=== PATIENT | female | born 1935 | race Caucasian/White ===

== ENCOUNTER 2019-08-31 01:17 | Inpatient (IN) | payer MEDICARE, OTHER ==
[~2019-08-31] VITALS: Ht 172.7 cm; Wt 99.8 kg
--- NOTE | 2019-08-31 01:48 | NUR ---
URINE SPECIMEN SENT TO LAB
--- NOTE | 2019-08-31 01:49 | NUR ---
LINEN CHANGED AND PERINEAL CARE PROVIDED. PT REPOSITIONED IN BED. VSS. WILL CONTINUE TO MONITOR.
[2019-08-31] MEDS ORDERED: NEXIUM20 MG PO (01:52)
[2019-08-31] MEDS ORDERED: TESSALON PERLE100 MG PO (01:52)
[2019-08-31] MEDS ORDERED: LEXAPRO5 MG PO (01:52)
[2019-08-31] MEDS ORDERED: LOMOTIL 2.5-0.1 EAC1 PO (01:52)
[2019-08-31] MEDS ORDERED: AVAPRO300 MG PO (01:53)
[2019-08-31] MEDS ORDERED: GLUCOPHAGE500 MG PO (01:53)
[2019-08-31] MEDS ORDERED: LEVEMIR FL100 UNIT/1 SC (01:53)
[2019-08-31] MEDS ORDERED: HYDROCHLOROTH12.5 M1 PO (01:53)
[2019-08-31] MEDS ORDERED: PROPAFENONE HC225 MG PO (01:54)
[2019-08-31] MEDS ORDERED: NOVOLOG100 UNIT/1 SC (01:54)
[2019-08-31] MEDS ORDERED: CRESTOR5 MG PO (01:55)
[2019-08-31] MEDS ORDERED: COUMADIN2 MG PO (01:55)
[2019-08-31 02:06] LABS: BASOPHILS 0.2 % (0-2); EOSINOPHILS 0.9 % (0-7); HEMATOCRIT 35.9 % (36.0-48.0); HEMOGLOBIN 11.6 g/dL (12-16); IMMATURE GRANULOCYTES 0.5 % (0-5); LYMPHOCYTES 23.1 % (15-50); MCH 28.8 pg (26.0-34.0); MCHC 32.3 g/dL (31.0-37.0); MCV 89.1 fL (80.0-100.0); MEAN PLATELET VOLUME 9.7 fL (7.4-10.4); MONOCYTES 12.5 % (2-11); NEUTROPHILS 62.8 % (40-80); PLATELET COUNT 391 10x3/uL (130-400); RBC 4.03 10x6/uL (4.00-5.40); RDW 14.7 % (11.5-14.5); WBC 11.1 10x3/uL (4.8-10.8)
[2019-08-31 02:08] LABS: BILIRUBIN NEGATIVE (NEGATIVE); GLUCOSE 100 mg/dL (NEGATIVE); KETONE MODERATE mg/dL (NEGATIVE); NITRITE NEGATIVE (NEGATIVE); UROBILINOGEN NORMAL (NORMAL)
[2019-08-31 02:10] LABS: BACTERIA MODERATE /hpf (NEGATIVE); EPITHELIAL CELLS 0-5 /hpf (0-5); WHITE CELLS - URINE 25-50 /hpf (NEGATIVE); YEAST >1+ /hpf (NONE SEEN)
[2019-08-31 02:22] LABS: CALC OSMOLALITY 290 mosm/kg (275-300); CALCIUM 9.1 mg/dL (8.5-10.1); CARBON DIOXIDE 25.8 mmol/L (21.0-32.0); CHLORIDE - SERUM 104 mmol/L (98-107); CREATININE - SERUM 0.8 mg/dL (0.6-1.3); GLUCOSE 298 mg/dL (74-106); POTASSIUM - SERUM 3.3 mmol/L (3.5-5.1); SODIUM 138 mmol/L (136-145); UREA NITROGEN 23 mg/dL (7-18); eGFR NON AFRICAN AMERICAN 73 mL/min (90-120)
[2019-08-31 02:23] LABS: APTT 33.5 SECONDS (22.8-39.4); INR 1.34 (0.85-1.17); PROTIME 16.5 SECONDS (11.6-15.0)
[2019-08-31 02:34] LABS: ALBUMIN 1.7 g/dL (3.4-5.0); ALKALINE PHOSPHATASE 71 U/L (30-120); ALT (SGPT) 38 U/L (10-68); BILIRUBIN - TOTAL 0.58 mg/dL (0.2-1.3); C-REACTIVE PROTEIN 34.7 mg/dL (0.0-0.9); CREATINE KINASE 137 UL (21-215); MAGNESIUM - SERUM 1.5 mg/dL (1.8-2.4); PRO BNP 237 pg/mL (0-450); THYROID STIMULATING HORMONE 0.75 uIU/mL (0.36-3.74); TROPONIN-I < 0.017 ng/mL (0.000-0.060)
[2019-08-31 02:37] LABS: LIPASE 28 U/L (73-393)
[2019-08-31 05:28] VITALS: BP 149/58; BMI 33.5
--- NOTE | 2019-08-31 06:02 | NUR ---
PT ARRIVED TO THE FLOOR. ALERT WITH SOME CONFUSION. PT IS HARD OF HEARING. IV SITE LT FA DRESSING CLEAN DRY AND INTACT. NO SIGNS OF INFECTION OR INFULTRATION. BILATERAL ARM BRUISES. BOWEL SOUNDS ACTIVE. LUNG SOUNDS CLEAR. SOME LOWER LEG SWELLING PRESENT. SKIN CLEAN DRY AND INTACT. HARD CAST TO RT FOOT AND LEG DO TO A ANKLE FX. 2LO2 NASAL CANNULA. WILL CONTINUE PLAN OF CARE. CALL LIGHT IN REACH. BED LOWERED AND LOCKED. BED RAILS UPX2. DELMA ALARM ON. FALL PRECAUTIONS IN PLACE.
--- NOTE | 2019-08-31 06:04 | NUR ---
WHEN GIVEN REPORT FROM ER. ER NURSE STATED THAT PT WAS TRAVELING FROM [place] TODAY TO LIVE HERE IN [place] AT THE [facility] WITH HER DAUGHTER. PT WAS LIVING IN [place] WITH HER SON WHEN SHE WAS TAKEN TO THE HOSPITAL DUE TO A FALL IN THE SHOWER AT HER SONS. SON STATED THAT THE FALL HAPPENED 5-6 HOURS BEFORE BRINGING HER TO THE HOSPITAL BUT THE DOCTORS SUSPECTED THAT THE INJURY HAPPEND 3-4 DAYS PRIOR TO WHEN THE SON BROUGHT HER TO THE HOSPITAL. ER NURSE ALSO STATED THAT THE DAUGHTER LEFT THE PT IN HER CAR NOT RUNNING FOR HOURS UNTIL EMS ARRIVED TO HELP WITH TRANSFURING THE PT. UPON ASSESSING THE PT WHEN SHE ARRIVED TO THE FLOOR. THE PT SCREAMS OUT WHEN YOU TOUCH HER AND YELLS "PLEASE I DID NOTHING WRONG PLEASE DONT HURT ME" CM CONSULT ORDERED.
--- NOTE | 2019-08-31 07:41 | NUR ---
CALL FROM DAUGHTER,PASSWORD CONFIRMED. SHE STATES SHE WANTS UPDATE ON HER MOMS STATUS WHEN DOCTOR ROUNDS. SHE ALSO STATES HER MOM HAS TO BE FED HER MEALS.
[2019-08-31 08:00] VITALS: BP 128/62
--- NOTE | 2019-08-31 10:30 | NUR ---
FAMILY TO VISIT AND WANTS TO GIVE PATIENT COFFEE. I INSTRUCTED FAMILY PATIENT CANNOT HAVE ANYTHING UNTIL SHE WAKES UP MORE. SHE IS STILL VERY SLEEPY AND DOES NOT WAKE ENOUGH TO GIVE HER PO AT THIS TIME.
[2019-08-31 11:14] VITALS: Ht 172.7 cm; Wt 99.8 kg
--- NOTE | 2019-08-31 11:39 | NUR ---
ASSESSMENT PER FLOW SHEET. PATIENT AWAKENS BRIEFLY. SHE HAS BRUISES ON ARMS AND LEGS,SPORATICALLY.RLE HAS SOME SWELLING AND BRUISES WITH CAST IN PLACE.FALL PREVENTION IN PLACE WITH DELMA MAT.
[2019-08-31 12:00] VITALS: BP 155/50
--- NOTE | 2019-08-31 13:10 | NUR ---
FAMILY HERE TO VISIT.PATIENT IS WAKING UP FOR HER GRANDAUGHTER. PATIENT IS EATING A FEW BITES OF JELLO AND BROTH.MONITOR FOR NEEDS.
[2019-08-31 16:00] VITALS: BP 137/75
--- NOTE | 2019-08-31 18:41 | NUR ---
REMAINS WITHOUT NEEDS.CONT PLAN OF CARE
[2019-08-31 20:00] VITALS: BP 157/77
[2019-09-01 04:00] VITALS: BP 165/66
[2019-09-01 06:29] LABS: BASOPHILS 0.1 % (0-2); EOSINOPHILS 1.8 % (0-7); HEMATOCRIT 38.2 % (36.0-48.0); HEMOGLOBIN 11.9 g/dL (12-16); IMMATURE GRANULOCYTES 0.5 % (0-5); LYMPHOCYTES 28.6 % (15-50); MCH 28.1 pg (26.0-34.0); MCHC 31.2 g/dL (31.0-37.0); MCV 90.3 fL (80.0-100.0); MONOCYTES 9.9 % (2-11); NEUTROPHILS 59.1 % (40-80); PLATELET COUNT 420 10x3/uL (130-400); RBC 4.23 10x6/uL (4.00-5.40); RDW 14.8 % (11.5-14.5); WBC 11.9 10x3/uL (4.8-10.8)
[2019-09-01 06:56] LABS: INR 1.83 (0.85-1.17); PROTIME 20.9 SECONDS (11.6-15.0)
--- NOTE | 2019-09-01 07:15 | NUR ---
ASSESSMENT PER FLOW SHEET. FALL PREVENTION IN PLACE WITH DELMA MAT.
[2019-09-01 07:23] LABS: ALBUMIN 1.6 g/dL (3.4-5.0); ALKALINE PHOSPHATASE 69 U/L (30-120); ALT (SGPT) 29 U/L (10-68); BILIRUBIN - TOTAL 0.27 mg/dL (0.2-1.3); CALC OSMOLALITY 287 mosm/kg (275-300); CALCIUM 8.8 mg/dL (8.5-10.1); CARBON DIOXIDE 25.9 mmol/L (21.0-32.0); CHLORIDE - SERUM 104 mmol/L (98-107); CREATININE - SERUM 0.6 mg/dL (0.6-1.3); GLUCOSE 267 mg/dL (74-106); POTASSIUM - SERUM 3.4 mmol/L (3.5-5.1); PROTEIN - SERUM 5.9 g/dL (6.4-8.2); SODIUM 139 mmol/L (136-145); eGFR NON AFRICAN AMERICAN > 90 mL/min (90-120)
[2019-09-01 07:24] LABS: UREA NITROGEN 14 mg/dL (7-18)
[2019-09-01 08:00] VITALS: BP 164/75
--- NOTE | 2019-09-01 08:30 | NUR ---
IV DCD WITH CATH TIP INTACT.
[2019-09-01] MEDS ORDERED: OMNICEF300 MG PO (09:26)
--- NOTE | 2019-09-01 10:06 | MORECARE ---
CASE MANAGEMENT DISCHARGE SUMMARY PATIENT: TRISTAN LAKHANI UNIT: [id number] ADM DATE: 08/31/19 AGE: 84 : 37 SEX: F ROOM/BED: D.2224 AUTHOR: SACHI FRIEDMAN PHYSICIAN: REFERRING PHYSICIAN: ARTIE MATIAS MD DATE OF SERVICE: 09/01/19 Discharge Plan Patient Name: TRISTAN LAKHANI [facility] [facility] 1935 Planned Disposition: Intermediate Facility Anticipated Discharge Date: Discharge Date: Expected LOS: Initial Reviewer: [email or web address] Initial Review Date: 08/31/2019 Generated: 09/01/19 11:05 am Comments DCP- Discharge Planning Updated by [email or web address]: Loretta Johns on 09/01/19 9:[address] Patient is being discharged to the [facility] she will be going to a skilled bed External Providers External Provider: [facility] Next Contact Date: Service Request Date: Service Type: Resolution: Reviewer: Comments: Patient Name: TRISTAN LAKHANI Page [phone] at 1006 All edits/amendments must be made on the electronic document DICTATION DATE: 09/01/19 100 CAREER SERVICES MANAGER: CEDRIC 09/01/19 1005 RPT#: [id number] DC DATE: STATUS: ADM IN [facility] [address] [id number] END OF REPORT
--- NOTE | 2019-09-01 10:55 | NUR ---
REPORT TO NARCISO AT THE [facility]
--- NOTE | 2019-09-01 12:42 | NUR ---
LEFT UNIT VIA STRETCHER WITH [facility] FOR TRANSPORT TO [address]
--- NOTE | 2019-09-02 09:34 | MORECARE ---
CASE MANAGEMENT DISCHARGE SUMMARY PATIENT: TRISTAN LAKHANI UNIT: [id number] ADM DATE: 08/31/19 AGE: 84 : 37 SEX: F ROOM/BED: D.2224 AUTHOR: SACHI FRIEDMAN PHYSICIAN: REFERRING PHYSICIAN: ARTIE MATIAS MD DATE OF SERVICE: 09/02/19 Discharge Plan Patient Name: TRISTAN LAKHANI [facility] [facility] 1935 Planned Disposition: [facility] Facility Anticipated Discharge Date: Discharge Date: 09/01/2019 Expected LOS: Initial Reviewer: [email or web address] Initial Review Date: 08/31/2019 Generated: 09/02/19 10:33 am Comments DCP- Discharge Planning Updated by [email or web address]: Loretta Johns on 09/01/19 9:[address] Patient is being discharged to the [facility]. she will be going to a skilled bed Last DP export: 09/01/19 9:06 a Patient Name: TRISTAN LAKHANI Page [phone] at 0934 All edits/amendments must be made on the electronic document DICTATION DATE: 09/02/19932 END USER CONSULTANT: CEDRIC 09/02/19932 RPT#: [id number] DC DATE:09/01/19 STATUS: DIS IN [facility] [address] [place] [address] END OF REPORT
== END 2019-09-01 12:42 | DRG 689 ==
LOC: D.ER 01:17 → D.MS 02:17
PROVIDERS: Family Medicine; ADMIT Family Medicine Adult Medicine; ATTEND Family Medicine Adult Medicine
DX: N39.0 Urinary tract infection, site not specified (principal); R53.2 Functional quadriplegia; G93.41 Metabolic encephalopathy; E43 Unspecified severe protein-calorie malnutrition; E11.65 Type 2 diabetes mellitus with hyperglycemia; R01.1 Cardiac murmur, unspecified; F03.90 Unspecified dementia, unspecified severity, without behavioral disturbance, psychotic disturbance, mood disturbance, and anxiety; E87.6 Hypokalemia; R50.9 Fever, unspecified; Z87.891 Personal history of nicotine dependence; S82.91XA Unspecified fracture of right lower leg, initial encounter for closed fracture

== ENCOUNTER 2019-11-20 09:26 | Inpatient (IN) | payer MEDICARE, OTHER ==
[2019-11-20] VITALS (11 sets, daily range): BP systolic 57–114; BP diastolic 28–87; BMI 23.8
[~2019-11-20] VITALS: Ht 172.7 cm; Wt 71.0 kg
--- NOTE | ~2019-11-20 | OP ---
PATIENT NAME: TRISTAN LAKHANI MEDICAL RECORD: [id number] :39 LOCATION:D.ICU D.2307 ADMISSION DATE:11/20/19 SURGEON: CESAR HOANG MD DATE OF OPERATION: 11/21/2019 PREOPERATIVE DIAGNOSES: 1. Need for IV access. 2. Urosepsis. 3. Coronary artery disease. 4. Diabetes mellitus. 5. Atrial fibrillation. 6. Dementia. POSTOPERATIVE DIAGNOSES: 1. Need for IV access. 2. Urosepsis. 3. Coronary artery disease. 4. Diabetes mellitus. 5. Atrial fibrillation. 6. Dementia. PROCEDURE: Right subclavian vein triple-lumen central venous line placement. SURGEON: Cesar Hoang MD REPORT OF PROCEDURE: The patient's right chest was prepped and draped in sterile fashion. A 5 cc of 1% lidocaine was infused into the subcutaneous tissues. A needle was used to cannulate the right subclavian vein and a guidewire was advanced with ease. Over this wire, a dilator was placed followed by the triple lumen catheter. The catheter aspirated nonpulsatile dark blood and flushed easily in all 3 ports. This was sutured into place with 3-0 silk ties and dressed appropriately. COMPLICATIONS: None. CONDITION: Stable. ANESTHESIA: Local. BLOOD LOSS: Minimal. Procedure done in the ICU at the bedside. TRANSINT:[id number] Voice Confirmation ID: [id number] DOCUMENT ID: [id number] CESAR HOANG MD CC: [id number] DICTATION DATE: 11/21/19918 SATURATOR: 11/21/19 1237 ADM IN [facility] [address] [place] [address]
[~2019-11-20 09:26] MED LIST: AVAPRO300 MG PO; COUMADIN2 MG PO; CRESTOR5 MG PO; GLUCOPHAGE500 MG PO; HYDROCHLOROTH12.5 M1 PO; LEVEMIR FL100 UNIT/1 SC; LEXAPRO5 MG PO; LOMOTIL 2.5-0.1 EAC1 PO; NEXIUM20 MG PO; NOVOLOG100 UNIT/1 SC; OMNICEF300 MG PO; PROPAFENONE HC225 MG PO; TESSALON PERLE100 MG PO
[2019-11-20 10:49] LABS: HEMATOCRIT 31.2 % (36.0-48.0); HEMOGLOBIN 10.1 g/dL (12-16); MCH 27.4 pg (26.0-34.0); MCHC 32.4 g/dL (31.0-37.0); MCV 84.8 fL (80.0-100.0); MEAN PLATELET VOLUME 11.1 fL (7.4-10.4); PLATELET COUNT 333 10x3/uL (130-400); RBC 3.68 10x6/uL (4.00-5.40); RDW 15.8 % (11.5-14.5); WBC 20.2 10x3/uL (4.8-10.8)
[2019-11-20 10:52] LABS: ALBUMIN 1.8 g/dL (3.4-5.0); ALKALINE PHOSPHATASE 91 U/L (30-120); ALT (SGPT) 29 U/L (10-68); CALC OSMOLALITY 304 mosm/kg (275-300); CALCIUM 9.5 mg/dL (8.5-10.1); CARBON DIOXIDE 18.3 mmol/L (21.0-32.0); CHLORIDE - SERUM 106 mmol/L (98-107); CKMB 5.1 U/L (0.0-3.6); CREATINE KINASE 106 UL (21-215); CREATININE - SERUM 1.5 mg/dL (0.6-1.3); POTASSIUM - SERUM 4.5 mmol/L (3.5-5.1); PROTEIN - SERUM 6.6 g/dL (6.4-8.2); SODIUM 139 mmol/L (136-145); UREA NITROGEN 38 mg/dL (7-18); eGFR NON AFRICAN AMERICAN 35 mL/min (90-120)
[2019-11-20 10:55] LABS: INR 2.42 (0.85-1.17)
[2019-11-20 10:56] LABS: APTT 36.1 SECONDS (22.8-39.4)
[2019-11-20 11:07] LABS: GLUCOSE 429 mg/dL (74-106)
[2019-11-20 11:08] LABS: TROPONIN-I 3.368 ng/mL (0.000-0.060)
[2019-11-20 12:28] LABS: BILIRUBIN NEGATIVE (NEGATIVE); KETONE NEGATIVE (NEGATIVE); NITRITE NEGATIVE (NEGATIVE); UROBILINOGEN NORMAL mg/dL (< 2)
[2019-11-20 12:30] LABS: BACTERIA MANY HPF (NONE SEEN); EPITHELIAL CELLS 0-5 /hpf (0-5)
[2019-11-20 13:47] LABS: LYMPHOCYTES 11 % (15-50); MONOCYTES 10 % (2-11); NEUTROPHILS 78 % (40-80)
[2019-11-20 13:48] LABS: ANISOCYTOSIS OCC; PLATELET ESTIMATE NORMAL
--- NOTE | 2019-11-20 17:05 | NUR ---
ATTEMPT TO CALL REPORT TO FLOOR X 3, M2 ANSWER X 1, NURSE AVAILABLE X 0
--- NOTE | 2019-11-20 18:40 | NUR ---
ATTEMT TO CALL REPORT X 10 MIN, ON HOLD, NURSE NOT AVAILABLE.
--- NOTE | 2019-11-20 19:55 | NUR ---
ATTEMPT TO CALL REPORT AGAIN. NURSE (RACHEL ORTEGA) NOT AVAILABLE
[2019-11-20] MEDS ORDERED: REMERON15 MG PO (23:44)
[2019-11-20] MEDS ORDERED: HYDROCODON-ACE1 EAC7 PO (23:46)
[2019-11-21] VITALS (79 sets, daily range): BP systolic 52–121; BP diastolic 28–99; Ht 172.7 cm; Wt 71.0 kg
--- NOTE | 2019-11-21 06:49 | NUR ---
0630 PT BECAME AGITATED, PULLING IV OUT AND ATTEMPTING TO PULL OUT MAYORGA. Mark PAGED NEW ORDERS PLACED FOR WRIST RESTRAINTS. WILL CONTINUE TO MONITOR
--- NOTE | 2019-11-21 07:28 | NUR ---
PAGED DR SMITH. GAVE OKAY TO PLACE CENTAL LINE. CONSENT OBTAINED FROM EMERGENCY CONTACT.
--- NOTE | 2019-11-21 12:56 | NUR ---
dnr per miri son. yu jay confirmed. no blood transfusions as well.
--- NOTE | 2019-11-21 14:17 | NUR ---
changed patients dressing wet to dry. abd pad and mepilex covered. pungent smell to wound.
--- NOTE | 2019-11-21 19:21 | NUR ---
RECEIVED REPORT FROM RACHEL MOE AND RACHEL MATTHEWS CHARGE NURSE, RACHEL MATTHEWS, CHARGE NURSE REPORTS THAT SHE WILL MONITOR PT'S VITAL SIGNS, LEVOPHED, AND ANY ADDITIONAL DRIPS
--- NOTE | 2019-11-21 20:00 | NUR ---
ASSESSMENT PER FLOW SHEET, VS CONTINUE, TEMP OBTAINED, PT IS VERY CONFUSED, RIGHT SUBCLAVIAN CVL INTACT WITH NO REDNESS OR EDEMA INFUSING NS AND LEVOPHED VIA PUMP, DRESSING ON COCCYX CDI, CHANGED TODAY PER ABHI, RN, FEET ELEVATED, MAYORGA CATH INTACT DRAINING DARK YELLOW URINE, FALL PRECAUTIONS IN PLACE
--- NOTE | 2019-11-21 21:29 | NUR ---
PT CONFUSED, OBTAINED FSBS, ADM INSULIN SUBQ AND HUNG NEW BAG OF NS VIA PUMP PER MD ORDERS, SEE EMAR
--- NOTE | 2019-11-21 22:34 | NUR ---
PHU MONTANO IVPB PER MD ORDERS, SEE EMAR
[2019-11-22] VITALS (73 sets, daily range): BP systolic 63–116; BP diastolic 28–85
--- NOTE | 2019-11-22 00:15 | NUR ---
PT AWAKE, PT TALKING OUT LOUD, CONFUSED, VS CONTINUE, FALL PRECAUTIONS IN PLACE
--- NOTE | 2019-11-22 00:55 | NUR ---
PT HR ELEVATED, RACHEL MATTHEWS CHARGE NURSE TO ROOM FOR EVALUATION AND EKG
--- NOTE | 2019-11-22 01:14 | NUR ---
RACHEL MATTHEWS, CHARGE NURSE CALLED DOCTOR, SEE ORDERS
--- NOTE | 2019-11-22 01:31 | NUR ---
BYRON, CD MANUFACTURING SUPERVISOR NURSE TO ROOM FOR ADM OF LOPRESSOR AND CARDIZEM PER MD ORDERS, SEE EMAR
--- NOTE | 2019-11-22 03:45 | NUR ---
LABS DRAWN PER THIS RN, I&O'S COLLECTED
--- NOTE | 2019-11-22 04:07 | NUR ---
PHU MONTANO IVPB PER MD ORDERS, SEE EMAR
--- NOTE | 2019-11-22 06:43 | NUR ---
SHIFT REPORT TO DAY SHIFT
--- NOTE | 2019-11-22 14:00 | NUR ---
DRESSING CHANGE ORDERED DAILY FOR COCCYX WOUND. REMOVED OLD DRESSING AND THIS NURSE SAW A BLACK UNSTAGABLE WOUND WITH A TUNNELING SPOT RIGHT IN THE MIDDLE OF THE WOUND. THIS NURSE PACKED THE TUNNEL WITH A WET 4X4 AND COVERED THE WOUND BED WITH A WET TO DRY DRESSING AND APPLIED A MEPILEX OVER TO PROVIDE MORE PADDING OVER BONY PROMINENCES.
--- NOTE | 2019-11-22 14:14 | NUR ---
Nutrition follow-up: Pts family member reports pt used to weigh 215# before a hospital stay in [place] 6 months ago. Pt now weighs 156#. Pt continues to be NPO due to confusion; has a very large infected coccyx wound. Based on the above pt is now assessed with severe malnutrition of chronic illness R/T infected wound AEB the following GLIM criteria: Phenotypic 1. ~27% weight loss in 6 months per family Etiologic 1. < 50% intake of estimated energy needs for > 2 weeks 2. 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 RDN following.
--- NOTE | 2019-11-22 17:50 | NUR ---
PAGED PRIMARY TO REPORT BRADYCARDIA
--- NOTE | 2019-11-22 18:30 | NUR ---
PRIMARY RETURNED PAGE AND NO NEW ORDERS REC'D. PT RESTING QUIETLY IN BED WITH HR 48BPM. WILL PASS ON IN SHIFT REPORT.
--- NOTE | 2019-11-22 19:15 | NUR ---
SHIFT REPORT RECEIVED FROM RACHEL REINOSO. PATIENT LYING SUPINE IN BED WITH WRIST RESTRAINTS ON. RESTING WITH EYES CLOSED WITH SHALLOW RESP. AT 16/MIN. VITAL SIGNS TAKEN: B\P= 101/54 P=48 R=16 O2 SET=99% WILL CONTINUE TO MONITOR.
--- NOTE | 2019-11-22 20:30 | NUR ---
FAMILY MEMBERS X3 ARRIVED TO STAY WITH PATIENT. SHE DENIED ANY PAIN WITH THEM. SHE ALSO SAID "ILOVE YOU ALL SO MUCH."
--- NOTE | 2019-11-22 23:26 | NUR ---
REPOSITIONED ON LEFT SIDE FOR FAMILY TO SEE PATIENT'S DECUBITUS ULCER ON COCCYX. NEW 4X4 DRESSINGS APPLIED.
[2019-11-23] VITALS (21 sets, daily range): BP systolic 70–104; BP diastolic 31–93
--- NOTE | 2019-11-23 01:30 | NUR ---
LYING ON LEFT SIDE WITH EYES CLOSED. NO S/S OF DISTRESS NOTED.
--- NOTE | 2019-11-23 07:46 | NUR ---
PATIENT YODITERING OUT. THIS NURSE ASSESSED PAIN AND PROVIDED ORDERED PAIN MEDICATION.
--- NOTE | 2019-11-23 11:15 | NUR ---
PAGED DR DAVIS TO REPORT FAMILYS WISHES TO PLACE THE PATIENT ON COMFORT MEASURES ONLY PAGED DR SMITH AGAIN FOR TRANSFER ORDERS TO THE FLOOR STILL AWAITING RETURN CALL AND ORDERS
--- NOTE | 2019-11-23 13:20 | NUR ---
PT ARRIVES TO ROOM VIA BED ESCORTED BY ICU STAFF. PT TRANSFERRED TO BED. MUKESH VELASCO NOTED AND DRAINING WITHOUT DIFFICULTY. CLEAR DARK YELLOW URINE NOTED TO COLLECTION BAG. STAT LOCK TO LEFT UPPER THIGH. DRESSING TO COCCYX IS CDI. PT WILL NOT RESPOND TO QUESTIONING AND ONLY MOANS WHEN SPOKEN TO. ALL FALL PRECAUTIONS ARE IN PLACE. BED IS IN THE LOWEST POSITION. CALL LIGHT AND BEDSIDE TABLE ARE WITHIN REACH. SIDE RAILS X 2. LEFT SUBCLAVIAN IN PLACE BIOPATCH IN PLACE AND IS SL AND FLUSHES WITHOUT DIFFICULTY. NO FAMILY AT BEDSIDE AT THIS TIME. WILL CONT TO MONITOR.
--- NOTE | 2019-11-23 14:56 | MORECARE ---
CASE MANAGEMENT DISCHARGE SUMMARY PATIENT: TRISTAN LAKHANI UNIT: [id number] ADM DATE: 11/20/19 AGE: 84 : 37 SEX: F ROOM/BED: D.2230 AUTHOR: SACHI FRIEDMAN PHYSICIAN: REFERRING PHYSICIAN: MAURO SMITH MD DATE OF SERVICE: 11/23/19 Discharge Plan Patient Name: TRISTAN LAKHANI Facility: [facility]:[place] : 1935 Planned Disposition: Anticipated Discharge Date: Discharge Date: Expected LOS: Initial Reviewer: [email or web address] Initial Review Date: 11/20/2019 Generated: 11/23/19 3:55 pm Patient Name: TRISTAN LAKHANI Page [phone] at 1456 All edits/amendments must be made on the electronic document DICTATION DATE: 11/23/191454 STATE ASSESSED PROPERTIES DIRECTOR: CEDRIC 11/23/191454 RPT#: [id number] DC DATE: STATUS: ADM IN [facility] [address] [place] [address] END OF REPORT
--- NOTE | 2019-11-23 15:06 | MORECARE ---
CASE MANAGEMENT DISCHARGE SUMMARY PATIENT: TRISTAN LAKHANI UNIT: [id number] ADM DATE: 11/20/19 AGE: 84 : 37 SEX: F ROOM/BED: D.2230 AUTHOR: SACHI FRIEDMAN PHYSICIAN: REFERRING PHYSICIAN: MAURO SMITH MD DATE OF SERVICE: 11/23/19 Discharge Plan Patient Name: TRISTAN LAKHANI [facility] [facility] 1935 Planned Disposition: Anticipated Discharge Date: Discharge Date: Expected LOS: Initial Reviewer: [email or web address] Initial Review Date: 11/20/2019 Generated: 11/23/19 4:06 pm Comments DCP- Discharge Planning Updated by [email or web address]: Claudine Solano on 11/23/19 1:[address] Patient Name: TRISTAN LAKHANI Admission Status: ER Accout number: [id number] Admission Date: 11-20-2019 : 1935 Admission Diagnosis:COUGH Attending: MAURO SMITH Current LOS: 3 Anticipated DC Date: Planned Disposition: Primary Insurance: MEDICARE A & B Discharge Planning Comments: CM SPOKE WITH PATIENT'S GRAND DAUGHTER ALLYSON TODAY AND THE FAMILY WOULD LIKE HOSPICE TO STEP IN. I HAVE FAXED A REFERRAL TO [facility]. WAITING CALL BACK. PATIENT'S POA IS MICHAEL AND HE CAN BE REACHED AT [phone] IF NEEDED. Client Services Analyst: Claudine Solano Last DP export: 11/23/19 1:56 p Patient Name: TRISTAN LAKHANI Page [phone] at 1506 All edits/amendments must be made on the electronic document DICTATION DATE: 11/23/19 1506 RN CCU: CEDRIC 11/23/19 1506 RPT#: [id number] DC DATE: STATUS: ADM IN [facility] [address] [place] [address] END OF REPORT
--- NOTE | 2019-11-24 09:24 | MORECARE ---
CASE MANAGEMENT DISCHARGE SUMMARY PATIENT: TRISTAN LAKHANI UNIT: [id number] ADM DATE: 11/20/19 AGE: 84 : 37 SEX: F ROOM/BED: D.2230 AUTHOR: SACHI FRIEDMAN PHYSICIAN: REFERRING PHYSICIAN: MAURO SMITH MD DATE OF SERVICE: 11/24/19 Discharge Plan Patient Name: TRISTAN LAKHANI [facility] [facility] 1935 Planned Disposition: Anticipated Discharge Date: Discharge Date: 11/23/2019 Expected LOS: Initial Reviewer: [email or web address] Initial Review Date: 11/20/2019 Generated: 11/24/19 10:23 am Comments DCP- Discharge Planning Updated by [id number]: Claudine Solano on 11/23/19 1:[address] Patient Name: TRISTAN LAKHANI Admission Status: ER Accout number: [id number] Admission Date: 11-20-2019 : 1935 Admission Diagnosis:COUGH Attending: MAURO SMITH Current LOS: 3 Anticipated DC Date: Planned Disposition: Primary Insurance: MEDICARE A & B Discharge Planning Comments: CM SPOKE WITH PATIENT'S GRAND DAUGHTER ALLYSON TODAY AND THE FAMILY WOULD LIKE HOSPICE TO STEP IN. I HAVE FAXED A REFERRAL TO [facility]. WAITING CALL BACK. PATIENT'S POA IS MICHAEL AND HE CAN BE REACHED AT [phone] IF NEEDED. Job Foreman: Claudine Yeboah DP export: 11/23/19 2:06 p Patient Name: TRISTAN LAKHANI Page [phone] at 0924 All edits/amendments must be made on the electronic document DICTATION DATE: 11/24/19922 REED FIXER: CEDRIC 11/24/19922 RPT#: [id number] DC DATE:11/23/19 STATUS: DIS IN [facility] [address] [place] [address] END OF REPORT
[2019-11-27 17:08] LABS: AEROBE ID Final report (())
[2019-11-27 17:08] LABS: AEROBE ID Final report (())
[2019-11-27 17:08] LABS: AEROBE ID Preliminary report (())
== END 2019-11-23 18:24 | disposition hospice, inpatient (51) | DRG 871 ==
LOC: D.ER 09:26 → D.EDHOLD 13:38 → D.ICU 13:38 → D.MS 11-23 12:47
PROVIDERS: Emergency Medicine; ADMIT Legal Medicine; ATTEND Legal Medicine
PROC: 05H533Z Insertion of Infusion Device into Right Subclavian Vein, Percutaneous Approach (ICD-10-PCS; principal; 2019-11-21)
DX: A41.9 Sepsis, unspecified organism (principal); R65.21 Severe sepsis with septic shock; I21.A1 Myocardial infarction type 2; N39.0 Urinary tract infection, site not specified; E87.2 Acidosis; I48.20 Chronic atrial fibrillation, unspecified; L89.159 Pressure ulcer of sacral region, unspecified stage; E11.9 Type 2 diabetes mellitus without complications; I35.0 Nonrheumatic aortic (valve) stenosis; R50.9 Fever, unspecified; D72.829 Elevated white blood cell count, unspecified; F03.90 Unspecified dementia, unspecified severity, without behavioral disturbance, psychotic disturbance, mood disturbance, and anxiety; Z79.84 Long term (current) use of oral hypoglycemic drugs; E86.0 Dehydration; I25.10 Atherosclerotic heart disease of native coronary artery without angina pectoris

== ENCOUNTER 2019-11-23 18:27 | Inpatient (IN) | payer OTHER ==
[~2019-11-23] VITALS: Ht 172.7 cm; Wt 74.8 kg
[~2019-11-23 18:27] MED LIST changes: +HYDROCODON-ACE1 EAC7 PO; +REMERON15 MG PO
--- NOTE | 2019-11-23 19:19 | NUR ---
[facility] IN [facility] FOR CREMATION PER [facility] NURSE WALLACE HUA RN.
[2019-11-23 20:00] VITALS: BP 102/48
--- NOTE | 2019-11-23 20:00 | NUR ---
FAMILY AT BEDSIDE AT THIS TIME. PT ON LEFT SIDE. COCCYX DRESSING IN PLACE. PILLOW BETWEEN KNEES. MAYORGA IN PLACE. RIGHT SUBCL INFUSING NS @ KVO WITH DILAUDID YARN SPINNER CONT 0.5MG/HR. PT SHOWING NO SIGNS OF PAIN. HOSPICE NURSE AT BEDSIDE ASSESSING PT. PROVIDED FAMILY WITH MORE CHAIRS. DENIES OTHER NEEDS AT THIS TIME. WILL CTM
--- NOTE | 2019-11-24 01:00 | NUR ---
PT TURNED TO RIGHT SIDE, RESPIRATIONS 8/MIN. O2 92% ON ROOM AIR. WITHOUT DISTRESS. SON AT BEDSIDE. COMBED KNOTS OUT OF PATIENTS HAIR. SON DENIES NEEDS AT THIS TIME. WILL CTM
[2019-11-24 01:47] VITALS: BMI 25.1
[2019-11-24 10:10] VITALS: BP 113/59
[2019-11-24 14:28] VITALS: Ht 172.7 cm; Wt 74.8 kg
--- NOTE | 2019-11-24 16:12 | NUR ---
I have reviewed this patient and I concur with the Shift Assessment completed by the Licensed Practical Nurse today this shift.
[2019-11-24 16:49] VITALS: BP 102/42
[2019-11-24 20:00] VITALS: BP 90/44
--- NOTE | 2019-11-24 22:30 | NUR ---
FAMILY AT BEDSIDE. IV TO RIGHT FOREARM DCd WITH CATH INTACT. MAYORGA CARE PROVIDED, HEEL BOOTS APPLIED. DRESSING TO COCCYX REMOVED, AREA CLEANSED, AND NEW DRESSING APPLIED. SUCTION AT BEDSIDE, CT.
--- NOTE | 2019-11-25 03:45 | NUR ---
I have reviewed this patient and I concur with the Shift Assessment completed by the Licensed Practical Nurse today this shift.
[2019-11-25 08:00] VITALS: BP 130/58
--- NOTE | 2019-11-25 08:24 | NUR ---
0700 ASLEEP SNORING WITH MOUTH OPEN MURMUR DETECTED FAMILY MEMBER ASLEEP IN RECLINER CHAIR
--- NOTE | 2019-11-25 10:26 | NUR ---
SPOKE WITH DESHAWN WITH [facility] AND REPORTED VITAL SIGNS TO HER
[2019-11-25 12:23] VITALS: BP 108/49
--- NOTE | 2019-11-25 16:48 | NUR ---
1500 CONTINUE TO TURN EVERY 2 HOURS EMOTIONAL SUPPORT PROVIDED TO FAMILY
--- NOTE | 2019-11-25 16:51 | NUR ---
1600 NO CHANGES WITH PATIENT AWAKENS AT TIMES OPENS EYES
--- NOTE | 2019-11-25 19:00 | NUR ---
RECEIVED REPORT, ASSUMED CARE, PT SLEEPING, DOES NOT AROUSE TO VOICE, RESPIRATIONS 10, FAMILY AT BEDSIDE, MAYORGA TO GRAVITY, FUSE CUP EXPANDER CONTINUOUS, R CVL PATENT
[2019-11-25 21:35] VITALS: BP 105/75
[2019-11-26 11:51] VITALS: BP 123/56
--- NOTE | 2019-11-26 17:37 | NUR ---
0700 BEDSIDE REPORT RECEIVED NO CHANGES FROM YESTERDAY FAMILY MEMBERS AT BEDSIDE EMOTIONAL SUPPORT GIVEN
--- NOTE | 2019-11-26 18:41 | NUR ---
0937 ATROPINE 2 GTTS SUBLINGUAL FOR COARSE GURGLING
--- NOTE | 2019-11-26 18:42 | NUR ---
1259 GURGLING IN BACK OF THROAT ATROPINE 2 GTTS GIVEN SL
--- NOTE | 2019-11-26 18:43 | NUR ---
1433 ATROPINE 2 GTTS GIVEN SL
--- NOTE | 2019-11-26 18:43 | NUR ---
1802 CHECKED FOR STOOL NONE NOTED ATROPINE 2 GTTS GIVEN SL EMOTIONAL SUPPORT PROVIDED TO PT DTR
--- NOTE | 2019-11-26 19:00 | NUR ---
RECEIVED REPORT, ASSUMED CARE, PT SLEEPING, DOES NOT AROUSE TO VOICE, RESPIRATIONS IRREGULAR, ARMY MANAGER 0.5 CONT, SON AT BEDSIDE, DENIES NEEDS, MAYORGA TO GRAVITY, ARMY MANAGER CONTINUOUS, R CVL PATENT
[2019-11-26 20:00] VITALS: BP 115/54
--- NOTE | 2019-11-27 03:38 | NUR ---
I have reviewed this patient and I concur with the Shift Assessment completed by the Licensed Practical Nurse today this shift.
--- NOTE | 2019-11-27 07:52 | NUR ---
PATIENT LYING TO LEFT SIDE. FAMILY IN ROOM.CALL LIGHT IN REACH
[2019-11-27 12:38] VITALS: BP 154/55
[2019-11-27 20:00] VITALS: BP 146/71
--- NOTE | 2019-11-27 20:15 | NUR ---
SUPINE IN BED, OPENS EYES AND GROANS WHILE BEING TURNED. FAMILY AT BEDSIDE, NO QUESTIONS AT THIS TIME, CTM.
--- NOTE | 2019-11-28 01:01 | NUR ---
BED BATH GIVEN, FOLEYLEAKING, FLUSHED AND MAYORGA CARE PROVIDED. POWDER ADMINISTERED TO FOLDS. CTM.
--- NOTE | 2019-11-28 01:03 | NUR ---
DRESSING TO COCCYX SOILED, REMOVED, CLEANSED, NEW DRESSING APPLIED. CTM.
--- NOTE | 2019-11-28 02:23 | NUR ---
I have reviewed this patient and I concur with the Shift Assessment completed by the Licensed Practical Nurse today this shift.
[2019-11-28 07:00] VITALS: BP 129/46
--- NOTE | 2019-11-28 07:46 | NUR ---
PATIENT SON AT BEDSIDE, PATIENT DRESSING CHANGED AGAIN LAST NIGHT DRAINAGE WAS SEEPING THROUGH DRESSING, PT BERATHING IS LABORED, RHALES HEARD. AIRLINE HOSTESS CONTINUOUS. CONTINUE WITH PLAN OF CARE
[2019-11-28 15:00] VITALS: BP 128/58
--- NOTE | 2019-11-28 18:14 | NUR ---
I have reviewed this patient and I concur with the Shift Assessment completed by the Licensed Practical Nurse today this shift.
[2019-11-28 20:00] VITALS: BP 125/55
--- NOTE | 2019-11-28 23:00 | NUR ---
SUPINE IN BED, SPONTANEOUS EYE OPENING TO VERBAL STIMULATION, NO VERBAL RESPONSE. TURNED TO LEFT SIDE, DRESSING TO COCCYX CDI. FAMILY AT BEDSIDE, CTM.
[2019-11-29 08:02] VITALS: BP 120/58
--- NOTE | 2019-11-29 08:29 | NUR ---
RESTING IN BED, FAMILY IN ROOM, IV PER CENTRAL LINE, HOSPICE, TURN PER STAFF, CONT TO MONITOR
--- NOTE | 2019-11-29 09:43 | NUR ---
TURNED PER STAFF, DRESSING CHANGED TO R CENTRAL LINE, NO S/S OF INFECTION NOTED, FAMILY IN ROOM
--- NOTE | 2019-11-29 19:58 | NUR ---
SPO2 80%, ATTEMPTED TO PUT O2 BACK UP TO NOSE, FAMILY REFUSED, STATING SHE DOES NOT WANT HER TO GET A NOSE BLEED AND THAT SHE LOOKS UNCOMFORTABLE WITH IT. PT ALSO TENDS TO MOUTH BREATHE AND FAMILY DOES NOT WANT HER TO DRY OUT. CTM.
[2019-11-29 22:21] VITALS: BP 121/36
--- NOTE | 2019-11-30 02:32 | NUR ---
I have reviewed this patient and I concur with the Shift Assessment completed by the Licensed Practical Nurse today this shift.
[2019-11-30 08:00] VITALS: BP 111/46
--- NOTE | 2019-11-30 09:00 | NUR ---
ASSESSMENT PER FLOW SHEET. PATIENT IS WITHOUT DISTRESS.FAMILY AT BEDSIDE.
[2019-11-30 20:00] VITALS: BP 124/45
--- NOTE | 2019-12-01 04:05 | NUR ---
I have reviewed this patient and I concur with the Shift Assessment completed by the Licensed Practical Nurse today this shift.
[2019-12-01 08:00] VITALS: BP 114/46
--- NOTE | 2019-12-01 16:09 | NUR ---
Nutrition Follow-up: Patient unarousable per MD notes. Inpatient hospice. Diet: Regular Skin: unstageable decub ulcer Continued MNT not appropriate 2/2 inpatient hospice status. Nutrition will sign off at this time. Dietary to continue to honor any and all food request. Please consult nutrition if further MNT medically indicated and/or desired by family/MD.
--- NOTE | 2019-12-01 19:00 | NUR ---
BEDSIDE REPORT RECEIVED AND CARE OF PT ASSUMED. PT LYING IN MID SONI'S POSITION WITH EYES CLOSED AND EASY RESPIRATIONS. IV TO RIGHT SC WITH NS INFUSING AT KVO. PREP ROOM SUPERVISOR IN USE WITH DILAUDID 0.5 MG CONT/HR. SON IN AT BEDSIDE.
[2019-12-01 21:40] VITALS: BP 134/53
--- NOTE | 2019-12-01 23:15 | NUR ---
PT'S SON CAME TO DESK AND REPORTED HIS MOTHER HAD STOPPED BREATHING. NO HEARTBEAT DETECTED. CALLED HOSPICE NURSE DISTANCE LEARNING PROGRAM COORDINATOR.
--- NOTE | 2019-12-01 23:17 | NUR ---
CALLED [facility]AT[facility] POWDER MIXER AND CHARGE NURSE TO NOTIFY OF PT'S PASSING.
--- NOTE | 2019-12-01 23:20 | NUR ---
RACHEL VEGA FROM HOSPICE RETURNED CALL AND SHE IS ON HER WAY HERE.
--- NOTE | 2019-12-01 23:20 | NUR ---
CALLED ER TO ADVISE OF PT PASSING SO SHE COULD ALLOW MORE THAN ONE FAMILY MEMBER TO VISIT.
--- NOTE | 2019-12-02 00:03 | NUR ---
PT PRONOUNCED ON 0003 BY GARY HUA RN / [facility].
--- NOTE | 2019-12-02 00:04 | NUR ---
RACHEL VEGA FROM HOSPICE JUST ARRIVED.
--- NOTE | 2019-12-02 00:18 | NUR ---
CALLED MYAH: GLASSIE DONALDO. REF # [id number] PT DOES NOT MEET CRITERIA FOR ORGAN DONATION DUE TO SEPSIS.
--- NOTE | 2019-12-02 00:25 | NUR ---
CALLED FREDDIEKRISTY [facility] IN [place] [phone] TO NOTIFY THAT FAMILY WISHES THEIR SERVICES. THEY ARE ON THE WAY TO [employer] MACHINE OPERATOR PATIENT.
--- NOTE | 2019-12-02 01:26 | NUR ---
HOME HERE TO CRAWLER CRANE OPERATOR . FACESHEET AND COPY OF RECORD OF GIVEN.
--- NOTE | 2019-12-02 01:27 | NUR ---
RECORD OF FAXED TO HOSPITAL SECURITY OFFICER.
== END 2019-12-02 00:03 | DRG 951 ==
LOC: D.MS 18:27
PROVIDERS: ADMIT Legal Medicine; ATTEND Legal Medicine
DX: Z51.5 Encounter for palliative care (principal)